=== PATIENT | female | born 1990 | race Caucasian/White ===

== ENCOUNTER 2016-11-22 19:51 | Inpatient (IN) | payer MEDICAID ==
[~2016-11-22] VITALS: Ht 162.6 cm; Wt 67.7 kg
[2016-11-22] VITALS (14 sets, daily range): BP systolic 119–181; BP diastolic 66–88; PULSE 70–94; TEMP 98.7
[2016-11-22 20:51] LABS: BASO # 0.1 (0.0-0.2); BASO % 0.4 % (0.0-2.0); EOS # 0.2 (0.0-0.7); EOS % 1.6 % (0-4.0); GRAN # 8.3 (1.4-6.5); GRAN % 68.7 % (42.2-75.2); HEMATOCRIT 35.8 % (37.0-47.0); HEMOGLOBIN 12.2 g/dl (12.5-16.0); LYMPH # 2.6 (1.2-3.4); LYMPH % 21.7 % (20.0-51.0); MEAN CELL VOLUME 88 fl (80.0-100.0); MEAN CORPUSCULAR HEMOGLOBIN 30 pg (27.0-31.0); MEAN CORPUSCULAR HGB CONC 34 g/dl (33.0-37.0); MEAN PLATELET VOLUME 11.1 fl (7.4-10.4); MONO # 0.9 (0.1-0.6); MONO % 7.3 % (1.7-9.3); PLATELET COUNT 259 K/mm3 (130-400); RED BLOOD COUNT 4.05 M/mm3 (4.10-5.30); REDCELL DISTRIBUTION WIDTH-CV 13.6 % (11.5-14.5); WHITE BLOOD COUNT 12.1 K/mm3 (4.8-10.8)
[2016-11-22] MEDS ORDERED: FOLIC ACID800 MCG PO (21:47)
[2016-11-22] MEDS ORDERED: PRENATAL1 TA7 PO (21:47)
[2016-11-22 21:49] LABS: AMPHETAMINE URINE NEGATIVE; BARBITURATES URINE NEGATIVE; BENZODIAZEPINES URINE NEGATIVE; BUPRENORPHINE URINE NEGATIVE; METHADONE URINE NEGATIVE; OPIATES URINE NEGATIVE; OXYCODONE URINE NEGATIVE; PHENCYCLIDINE URINE NEGATIVE; PROPOXYPHENE URINE NEGATIVE; THC CANNABINOIDS URINE NEGATIVE
[2016-11-23] VITALS (13 sets, daily range): BP systolic 116–151; BP diastolic 63–89; PULSE 54–84; TEMP 97.7–98.3
[2016-11-24 07:50] LABS: HEMATOCRIT 32.2 % (37.0-47.0); HEMOGLOBIN 10.7 g/dl (12.5-16.0)
[2016-11-24 08:30] VITALS: BP 114/66; PULSE 66; TEMP 97.6
[2016-11-24] MEDS ORDERED: IBU600 MG PO (10:22)
[2016-11-24 16:25] VITALS: BP 130/78; PULSE 74; TEMP 97.8
[2016-11-24 20:30] VITALS: BP 115/77; PULSE 68; TEMP 98.1
[2016-11-25 10:00] VITALS: BP 109/66; PULSE 62; TEMP 98.1
== END 2016-11-25 17:00 | disposition home or self-care (01) | DRG 775 ==
LOC: LDRO 19:51 → OB 20:00 → LDR 20:00 → OB 11-23 03:00
PROVIDERS: Obstetrics & Gynecology
PROC: 10E0XZZ Delivery of Products of Conception, External Approach (ICD-10-PCS; principal; 2016-11-22)
DX: O60.14X0 Preterm labor third trimester with preterm delivery third trimester, not applicable or unspecified (principal); Z3A.36 36 weeks gestation of pregnancy; Z37.0 Single live birth
CPT/HCPCS: J2540; J2590; J7120

== ENCOUNTER 2018-01-23 21:49 | Inpatient (IN) | payer MEDICAID ==
[~2018-01-23] VITALS: Ht 162.6 cm; Wt 68.2 kg
[~2018-01-23 21:49] MED LIST: FOLIC ACID800 MCG PO; IBU600 MG PO; PRENATAL1 TA7 PO
[2018-01-23 22:22] VITALS: TEMP 98.2
[2018-01-23] MEDS ORDERED: ZITHROMAX TRI-500 MG PO (22:32)
[2018-01-23] MEDS ORDERED: NATURAL IRON65 MG PO (22:32)
[2018-01-23] MEDS ORDERED: FOLIC ACID800 MCG PO (22:33)
[2018-01-23] MEDS ORDERED: PRENATAL MVI PO (22:35)
[2018-01-23 23:00] VITALS: BP 113/77; PULSE 86
[2018-01-24] VITALS (14 sets, daily range): BP systolic 99–141; BP diastolic 47–99; PULSE 75–106; TEMP 97.6–98.3
[2018-01-24 01:33] LABS: BASO # 0.1 (0.0-0.2); BASO % 0.4 % (0.0-2.0); EOS % 0.2 % (0-4.0); GRAN # 8.6 (1.4-6.5); GRAN % 71.4 % (42.2-75.2); HEMOGLOBIN 13.4 g/dl (12.5-16.0); LYMPH # 2.3 (1.2-3.4); LYMPH % 18.7 % (20.0-51.0); MEAN CELL VOLUME 85 fl (80.0-100.0); MEAN CORPUSCULAR HEMOGLOBIN 30 pg (27.0-31.0); MEAN CORPUSCULAR HGB CONC 35 g/dl (33.0-37.0); MEAN PLATELET VOLUME 10.6 fl (7.4-10.4); MONO # 1.1 (0.1-0.6); MONO % 8.9 % (1.7-9.3); PLATELET COUNT 351 K/mm3 (130-400); RED BLOOD COUNT 4.46 M/mm3 (4.10-5.30); REDCELL DISTRIBUTION WIDTH-CV 13.4 % (11.5-14.5)
[2018-01-24 07:04] LABS: MEAN CELL VOLUME 87 fl (80.0-100.0); MEAN CORPUSCULAR HGB CONC 35 g/dl (33.0-37.0); MEAN PLATELET VOLUME 10.6 fl (7.4-10.4); PLATELET COUNT 255 K/mm3 (130-400); RED BLOOD COUNT 3.66 M/mm3 (4.10-5.30); REDCELL DISTRIBUTION WIDTH-CV 13.3 % (11.5-14.5)
[2018-01-24 07:08] LABS: HEMATOCRIT 31.7 % (37.0-47.0); MEAN CORPUSCULAR HEMOGLOBIN 30 pg (27.0-31.0)
[2018-01-24 07:16] LABS: ALBUMIN 2.6 gm/dL (3.5-5.0); BILIRUBIN,TOTAL 0.7 mg/dL (0.0-1.0); CALCIUM 8.6 mg/dL (8.4-10.2); CREATININE, serum 1.06 mg/dL (0.52-1.25); POTASSIUM 4.1 mmol/L (3.4-5.0); TOTAL PROTEIN 5.8 gm/dL (6.4-8.2)
[2018-01-24 07:28] LABS: BAND 12 % (0-10); LYMPHOCYTE 17 % (20.0-51.0); METAMYELOCYTE 1 % (0-0); NEUTROPHILS 61 % (42.0-75.2); PLATELET ESTIMATE NORMAL (NORMAL)
[2018-01-25 08:32] VITALS: BP 107/72; PULSE 84
[2018-01-25 08:59] LABS: ALBUMIN 2.9 gm/dL (3.5-5.0); BILIRUBIN,TOTAL 0.2 mg/dL (0.0-1.0); CALCIUM 8.5 mg/dL (8.4-10.2); CREATININE, serum 0.71 mg/dL (0.52-1.25); POTASSIUM 4.5 mmol/L (3.4-5.0); TOTAL PROTEIN 6.1 gm/dL (6.4-8.2)
[2018-01-25 17:00] VITALS: BP 107/72; PULSE 60
[2018-01-25 20:00] VITALS: BP 128/76; PULSE 82; TEMP 99.2
[2018-01-26] VITALS: BP 112/66; PULSE 83; TEMP 98.6
[2018-01-26 04:00] VITALS: BP 109/65; PULSE 91; TEMP 98.9
[2018-01-26 07:38] VITALS: BP 91/61; PULSE 75; TEMP 98.2
[2018-01-26] MEDS ORDERED: IBU800 M1 PO (11:47)
== END 2018-01-26 14:40 | disposition home or self-care (01) | DRG 806 ==
LOC: LDRO 21:49 → LDR 01-24 01:14 → OB 01-24 05:16
PROVIDERS: Obstetrics & Gynecology
PROC: 10E0XZZ Delivery of Products of Conception, External Approach (ICD-10-PCS; principal; 2018-01-24)
DX: O99.62 Diseases of the digestive system complicating childbirth (principal); A09 Infectious gastroenteritis and colitis, unspecified; Z37.0 Single live birth; Z3A.37 37 weeks gestation of pregnancy; O99.824 Streptococcus B carrier state complicating childbirth; Z28.21 Immunization not carried out because of patient refusal
CPT/HCPCS: J2540; J2590; J7120

== ENCOUNTER 2019-02-18 22:01 | Emergency (ER) | payer SELFPAY ==
[~2019-02-18] VITALS: Ht 165.1 cm; Wt 63.6 kg
[~2019-02-18 22:01] MED LIST changes: +IBU800 M1 PO; +NATURAL IRON65 MG PO; +PRENATAL MVI PO; +ZITHROMAX TRI-500 MG PO
[2019-02-18 22:47] LABS: BASO # 0.1 (0.0-0.2); BASO % 0.9 % (0.0-2.0); EOS # 0.2 (0.0-0.7); EOS % 2.6 % (0-4.0); GRAN # 3.3 (1.4-6.5); GRAN % 49.3 % (42.2-75.2); HEMATOCRIT 39.8 % (37.0-47.0); HEMOGLOBIN 13.2 g/dl (12.5-16.0); LYMPH # 2.1 (1.2-3.4); LYMPH % 32.2 % (20.0-51.0); MEAN CELL VOLUME 87 fl (80.0-100.0); MEAN CORPUSCULAR HEMOGLOBIN 29 pg (27.0-31.0); MEAN CORPUSCULAR HGB CONC 33 g/dl (33.0-37.0); MEAN PLATELET VOLUME 9.3 fl (7.4-10.4); MONO % 14.7 % (1.7-9.3); PLATELET COUNT 373 K/mm3 (130-400); RED BLOOD COUNT 4.57 M/mm3 (4.10-5.30); REDCELL DISTRIBUTION WIDTH-CV 12.4 % (11.5-14.5)
[2019-02-18 22:58] LABS: ANION GAP 9 mmol/L (7-16); BLOOD UREA NITROGEN 7 mg/dL (7-17); CALCIUM 9.3 mg/dL (8.4-10.2); CARBON DIOXIDE 25 mmol/L (22-30); CHLORIDE 105 mmol/L (98-107); GLUCOSE 102 mg/dL (74-106); POTASSIUM 3.8 mmol/L (3.4-5.0); SODIUM 139 mmol/L (137-145)
[2019-02-18 23:18] LABS: TROPONIN-I < 0.012 ng/mL (0.000-0.035)
[2019-02-19 00:10] VITALS: BP 129/92; PULSE 72; TEMP 97.6
== END 2019-02-19 00:10 | disposition home or self-care (01) ==
LOC: COL.ER 22:01
PROVIDERS: Physician Assistant
DX: R07.89 Other chest pain (principal)